=== PATIENT | female | born 1960 | race Caucasian/White ===

== ENCOUNTER 2016-09-29 08:11 | Emergency (ER) | payer BC ==
[~2016-09-29] VITALS: Wt 65.0 kg
[~2016-09-29 08:11] MED LIST: ACET500C5 PO; ALBU18HF PO; AUG875 PO; AZIT250T94 PO; IBUP-1542 PO; IBUP800T25 PO; NAPR500T8 PO; PHEN177S43 MT; PRED20TA PO
--- NOTE | 2016-09-29 09:17 | ERD ---
ER Documentation Chief Complaint Date/Time DATE: 09/29/16 TIME: 09:15 Chief Complaint COUGH AND CONGESTION FOR THE PAST WEEK. NO DISTRESS HPI This is a 55-year-old female presents to the ER with cough and chest congestion for the past week. Patient states that she wakes up in the morning with a lot of chest congestion. She admits to" lung pain." Patient states that she has chest pain when she is coughing. She denies any shortness of breath. Patient states that she had a fever however fever resolved. She denies any sore throat or ear pain. There are no sick contacts at home .she had a past medical history of asthma she was a child. ROS 12 point review of systems was done, all negative except per HPI. Medications Home Meds Active Scripts Albuterol Sulfate* (Proair HFA*) 8.5 Gm Hfa.aer.ad, 2 PUFF INH Q4, #1 INHALER Prov:RADHA COLBERT 09/29/16 Dextromethorphan Hb-Promethazine Hcl (Promethazine DM Syrup) 473 Ml Syrup, 10 ML PO Q6H Y for COUGH, #4 OZ Prov:RADHA COLBERT 09/29/16 Acetaminophen* (Tylophen*) 500 Mg Capsule, 1 CAP PO Q6H Y for PAIN AND OR ELEVATED TEMP, #20 CAP Prov:JACK MOSQUERA PA-C 09/01/16 Azithromycin* (Zithromax*) 250 Mg Tablet, 250 MG PO .ZPACK DIRECTED, #6 TAB TAKE 500 MG (2 TABS) THE FIRST DAY THEN 250 MG (1 TAB) DAYS 2-5 Prov:JACK MOSQUERA PA-C 09/01/16 Phenol* (Chloraseptic* [place]) 177 Ml [place].pump, 2 SPRAY MT Q2H Y for SORE THROAT, #1 BOTTLE Prov:JACK MOSQUERA PA-C 09/01/16 Acetaminophen* (Tylophen*) 500 Mg Capsule, 1 CAP PO Q6H Y for PAIN AND OR ELEVATED TEMP, #20 CAP Prov:MARY ANN DA SILVA MD 01/29/16 Ibuprofen* (Motrin*) 600 Mg Tab, 600 MG PO Q6, #20 TAB Prov:MARY ANN DA SILVA MD 01/29/16 Prednisone* (Prednisone*) 20 Mg Tab, 40 MG PO DAILY for 4 Days, TAB Prov:TANYA NOVAK. 11/05/15 Ibuprofen* (Motrin*) 800 Mg Tab, 800 MG PO Q6, #30 TAB Prov:TANYA NOVAK. 11/05/15 Amoxicillin-Clavulanate K* (Augmentin*) 875 Mg Tab, 875 MG PO BID for 7 Days, TAB Prov:TANYA NOVAK. 11/05/15 Reported Medications Albuterol Sulfate* (Ventolin HFA*) 18 Gm Hfa.aer.ad, 2 PUFFS PO Q6 Y for WHEEZING AND SOB, #18 11/05/15 Naproxen* (Naproxen EC*) 500 Mg Tablet.dr, 500 MG PO BID 11/05/15 Allergies Allergies: Coded Allergies: No Known Allergies (Verified Allergy, Mild, 09/29/16) PMhx/Soc History of Surgery: Yes () Anesthesia Reaction: No Hx Neurological Disorder: No Hx Respiratory Disorders: No Hx Cardiac Disorders: Yes (HDL) Hx Psychiatric Problems: No Hx Miscellaneous Medical Probl: Yes (PRE DIABETES) Hx Alcohol Use: No Hx Substance Use: No Hx Tobacco Use: No Physical Exam Vitals Vital Signs Date Time Temp Pulse Resp B/P Pulse Ox O2 Delivery O2 Flow Rate FiO2 09/29/16 08:13 97.8 75 20 160/81 98 Physical Exam GENERAL: The patient is well-developed, well-nourished, in no acute distress. NECK: Cervical spine is non tender with no step off. Supple, no nuchal rigidity HEENT: Atraumatic. Pupils equal, round and reactive to light. Extraocular muscles are grossly intact. Conjunctivae pink, no discharge. Bilateral tympanic membranes are clear with no evidence of erythema, effusion or dulling of the light reflex. Tonsilar erythema with no exudates or uvular deviation. Clear rhinorrhea. RESPIRATORY: Clear to auscultation bilaterally. There are no rales, wheezes or rhonchi. HEART: Regular rate and rhythm. No murmurs, clicks, rubs or gallops. EXTREMITIES: No clubbing or cyanosis. Full range of motion. Grossly neurovascularly intact. NEUROLOGIC: Alert and oriented. Cranial nerves II through XII are intact. SKIN: There is no rash. The skin is warm and dry. Procedures/MDM EKG 60bpm no ST elevation no T wave inversion. Read by Dr. Sims. Differential diagnosis includes but is not limited to; Viral URI, allergic rhinitis, bronchitis, pertussis,pneumonia. This is likely viral in etiology. Clinical suspicion for pneumonia is low as patient appears well, is not hypoxic or in any respiratory distress. Additionally, patients physical examination is benign. Plan was discussed with patient they understand and agree. Patient needs to follow up with PCP in 1-2 days or return to ER sooner if symptoms worsen. Departure Diagnosis: Primary Impression: Upper respiratory disease Condition: Stable RADHA COLBERT Sep 29, 2016 09:17
--- NOTE | 2016-09-29 09:35 | RADRPT ---
PROCEDURE: XR Chest. CLINICAL INDICATION: Cough TECHNIQUE: A single AP view of the chest was obtained. COMPARISON: Chest x-ray dated 01/29/2016 FINDINGS: No focal airspace opacification, pleural effusion or pneumothorax is seen. The cardiomediastinal si lhouette is within normal limits for size. The osseous structures are unremarkable. IMPRESSION: No radiographic evidence of acute cardiopulmonary disease. No significant interval change. RPTAT: HH .Molly Zhong MD, MD Date Time Electronically viewed and signed by .Molly Zhong MD, MD on 09/29/2016 09:35 .G/
[2016-09-29] MEDS ORDERED: ALBU8.5H3 INH (09:58)
[2016-09-29] MEDS ORDERED: D-ME473S18 PO (09:58)
== END 2016-09-29 10:09 | disposition home or self-care (01) ==
LOC: FTE 08:11
DX: J39.9 Disease of upper respiratory tract, unspecified (principal); R07.9 Chest pain, unspecified
CPT/HCPCS: 71010; 93005

== ENCOUNTER 2017-10-23 18:22 | Emergency (ER) | END 2017-10-23 23:58 | disposition home or self-care (01) ==

== ENCOUNTER 2018-03-15 06:21 | Day surgery (SDC) | END 2018-03-15 11:20 | disposition home or self-care (01) ==

== ENCOUNTER 2018-08-23 19:15 | Emergency (ER) | END 2018-08-23 21:18 | disposition home or self-care (01) ==

== ENCOUNTER 2018-09-04 20:44 | Emergency (ER) | END 2018-09-05 00:48 | disposition home or self-care (01) ==

== ENCOUNTER 2019-02-15 21:10 | Emergency (ER) | payer MEDICAID ==
[~2019-02-15] VITALS: Wt 71.2 kg
[~2019-02-15 21:10] MED LIST changes: -ACET500C5 PO; -ALBU18HF PO; +ALBU8.5H8 INH; -AUG875 PO; +AZIT250T PO; -AZIT250T94 PO; +GUAI-637 PO; -IBUP-1542 PO; -IBUP800T25 PO; +LEVOTHYROXINE; +MED4DP PO; +METFORMIN; -NAPR500T8 PO; -PHEN177S43 MT; +PRAVASTATIN; -PRED20TA PO; +VITAMIN D3
[2019-02-15 21:12] VITALS: BP 158/86; PULSE 89; RESP 18
[2019-02-15] MEDS ORDERED: BENZ200C68 PO (22:57)
[2019-02-15] MEDS ORDERED: AZIT250T PO (22:57)
[2019-02-15] MEDS ORDERED: IBUP-1542 PO (22:57)
[2019-02-15] MEDS ORDERED: PHEN177S43 MT (22:57)
--- NOTE | 2019-02-16 01:10 | ERD ---
ER Documentation Chief Complaint Chief Complaint ST X'S 2 WEEKS HPI 38-year-old female with no significant past medical history presenting to the emergency department complaining of intermittent sore throat for the past 2 weeks. She reports dental pain and productive cough as well. She denies any fevers or chills or other symptoms at this time. Symptoms are mild to moderate. No sick contacts reported. She tried no medication for relief of symptoms at home. ROS All systems reviewed and are negative except as per history of present illness. Medications Home Meds Active Scripts Ibuprofen* (Motrin*) 600 Mg Tab, 600 MG PO Q6, #30 TAB Prov:TANYA RODRIGUEZ PA-C 02/15/19 Phenol* (Chloraseptic* [place]) 177 Ml [place].pump, 2 SPRAY MT Q2H PRN for SORE THROAT, #1 BOTTLE Prov:TANYA RODRIGUEZ PA-C 02/15/19 Benzonatate* (Benzonatate*) 200 Mg Capsule, 200 MG PO TID PRN for COUGH, #15 CAP Prov:TANYA RODRIGUEZ PA-C 02/15/19 Azithromycin* (Zithromax*) 250 Mg Tablet, 250 MG PO .ZPACK DIRECTED, #6 TAB TAKE 500 MG (2 TABS) THE FIRST DAY THEN 250 MG (1 TAB) DAYS 2-5 Prov:TANYA RODRIGUEZ PA-C 02/15/19 Guaifenesin* (Robitussin*) 100 Mg/5 Ml Syrup, 100 MG PO Q4H PRN for COUGH, #100 ML Prov:GREGG BARRAGAN PA-C 09/05/18 Methylprednisolone* (Medrol* DOSE PACK) 4 Mg/Dose-Pack Tab.ds.pk, 4 MG PO . DIRECTED, #1 PACKET Prov:GREGG BARRAGAN PA-C 09/05/18 Albuterol Sulfate* (Proair HFA*) 8.5 Gm Hfa.aer.ad, 2 PUFF INH Q4, #1 INHALER Prov:GREGG BARRAGAN PA-C 09/05/18 Azithromycin* (Zithromax*) 250 Mg Tablet, 250 MG PO .ZPACK DIRECTED, #6 TAB TAKE 500 MG (2 TABS) THE FIRST DAY THEN 250 MG (1 TAB) DAYS 2-5 Prov:MARYANNE DISLA PA-C 08/23/18 Reported Medications [Vitamin D3] No Conflict Check 03/15/18 [Pravastatin] No Conflict Check 03/15/18 [Metformin] No Conflict Check 03/15/18 [Levothyroxine] No Conflict Check 03/15/18 Allergies Allergies: Coded Allergies: No Known Allergies (Verified Allergy, Mild, 03/15/18) PMhx/Soc History of Surgery: Yes (c/section x3) Anesthesia Reaction: No Hx Neurological Disorder: No Hx Respiratory Disorders: No Hx Cardiac Disorders: No Hx Psychiatric Problems: No Hx Miscellaneous Medical Probl: Yes (dm) Hx Alcohol Use: No Hx Substance Use: No Hx Tobacco Use: No Smoking Status: Never smoker FmHx Family History: No diabetes Physical Exam Vitals Vital Signs Date Temp Pulse Resp B/P (MAP) Pulse Ox O2 O2 Flow FiO2 Time Delivery Rate 02/15/19 97.2 89 18 158/86 98 21:12 (110) Physical Exam Const: No acute distress Head: Atraumatic Eyes: Normal Conjunctiva ENT: Normal External Ears, Nose and Mouth. Neck: Full range of motion. No meningismus. Resp: Clear to auscultation bilaterally Cardio: Regular rate and rhythm, no murmurs Skin: No petechiae or rashes Back: No midline or flank tenderness Ext: No cyanosis, or edema Neur: Awake and alert Psych: Normal Mood and Affect Procedures/MDM 58-year-old female presented to the emergency complaining of intermittent sore throat for the past 2 weeks. Patient is also a productive cough. Signs and symptoms most consistent with acute bronchitis, possible bacterial etiology. Patient vital signs are stable and she is nontoxic and well-appearing. She will be treated as an outpatient with a prescription for Zithromax and benzonatate. She was advised to return to the department immediately for any new or worsening or concerning symptoms. She was in agreement with the diagnosis, plan company for follow-up, return precautions. Patient's blood pressure was elevated (>120/80) but appears stable without evidence of hypertension emergency or urgency. The patient is to follow-up and pursue outpatient monitoring and therapy with their primary care physician within 1 week and return immediately if they have any new, worsening, or concerning symptoms. Departure Diagnosis: Primary Impression: Acute bronchitis Condition: Fair Patient Instructions: Bronchitis, Antiobiotic Treatment (Adult) [facility] Usted se todd hecho un examen mdico de control que le indica que no est en eriberto condicin que requiera tratamiento urgente en el Departamento de Emergencia. Un estudio ms profundo y el tratamiento de marcano condicin pueden esperar sin ningn riesgo hasta que usted sea atendida/o en el consultorio de marcano mdico o eriberto clnica. Es responsabilidad suya arreglar eriberto jose para el seguimiento del valentine. MANEJO DE CONDICIONES NO URGENTES EN EL FUTURO 1) Si usted tiene un mdico de atencin primaria: Usted debera llamar a marcano mdico de atencin primaria antes de venir al departamento de emergencia. Despus de las horas de consultorio, marcano doctor o marcano asociado/a est disponible por telfono. El mdico o enfermero de talat en el servicio telefnico puede asesorarle por mouna medio para atender el problema, o [place]ent[place] contrario se puede programar eriberto jose. 2) Si usted no tiene un mdico de atencin primaria: Llame al mdico o clnica de referencia que aparece abajo coreen las horas de consultorio para hacer eriberto jose para que le vean. CLINICAS: [facility] [phone] [facility] [phone] [facility] [phone] [facility] [phone] [place] [phone] [facility]. [phone] [address] Additional Instructions: Llame al doctor MAANA y tanvi eriberto JOSE PARA DENTRO DE 1-2 WILHE[address].Dgale a la secre taria que nosotros le instruimos hacer esta jose.Avise o llame si marcano condicin se empeora antes de la jose. Regresa aqui si peor o no mejor. TANYA RODRIGUEZ PA-C February 16, 2019 01:10
== END 2019-02-15 23:11 | disposition home or self-care (01) ==
LOC: FTE 21:10
DX: J20.9 Acute bronchitis, unspecified (principal); E11.9 Type 2 diabetes mellitus without complications
CPT/HCPCS: 99283